=== PATIENT | male | born 1990 | race Caucasian/White ===

== ENCOUNTER 2020-06-12 20:43 | Emergency (ER) | payer OTHER ==
[2020-06-12] MEDS ORDERED: Zemuron 100 MG/10 ML IV ONE (20:44)
[2020-06-12] MEDS ORDERED: Quelicin Fliptop 200 MG/10 ML IV ONE (20:44)
[2020-06-12] MEDS ORDERED: Amidate 20 MG/10 ML IV ONE (20:44)
[2020-06-12] MEDS ORDERED: SUBLIMAZE 100 MCG/2 ML IV ONE (20:44)
[2020-06-12] MEDS ORDERED: DIPRIVAN 200 MG/20 ML IV ONE (20:44)
[2020-06-12] MEDS ORDERED: Sodium Chloride 0.9% 1000 ML 1,000 ML ONE (21:01)
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
[2020-06-12 21:42] VITALS: BP 165/94; PULSE 151; O2SAT 84
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
--- NOTE | 2020-06-13 07:18 | XRAY ---
Indication: Endotracheal tube placement. Comparison: None Portable chest underinflated, especially left lung with bilateral infiltrates versus atelectasis. No pneumothorax. Endotracheal tube tip 3 cm above arsalan. Heart is not enlarged for AP portable technique. Bony thorax intact. Comment: Preliminary interpretation was made by [facility]. No critical discrepancy.
== END 2020-06-12 21:23 | disposition short-term general hospital (02) ==
LOC: ED 20:43
DX: S00.83XA Contusion of other part of head, initial encounter (principal); S06.891A Other specified intracranial injury with loss of consciousness of 30 minutes or less, initial encounter; S31.119A Laceration without foreign body of abdominal wall, unspecified quadrant without penetration into peritoneal cavity, initial encounter; F10.129 Alcohol abuse with intoxication, unspecified; V86.55XA Driver of 3- or 4- wheeled all-terrain vehicle (ATV) injured in nontraffic accident, initial encounter
CPT/HCPCS: 31500; 71045; 72170; 94799; 99285; 99291; J0330; J2704; J3010